=== PATIENT | female | born 1975 | race Caucasian/White ===

== ENCOUNTER 2024-10-29 16:08 | Emergency (ER) | payer BC, OTHER ==
[2024-10-29] MEDS: Take Home: Amoxicillin/Clavulanate K 875-125 MG Tab, 6 Tab Pack PO ONE (16:34)
== END 2024-10-29 16:39 | disposition home or self-care (01) ==
LOC: DL.ED 16:08
DX: S61.451A Open bite of right hand, initial encounter (principal); W55.01XA Bitten by cat, initial encounter
CPT/HCPCS: 12001; 99283; A9270

== ENCOUNTER 2024-10-31 18:08 | Inpatient (IN) | payer OTHER ==
[2024-10-31] MEDS ORDERED: Acetaminophen 325 MG Tab PO PRN (19:31)
[2024-10-31 19:52] LABS: BASOPHILS PERCENT AUTO 0.2 % (0.0-1.0); EOSINOPHILS PERCENT AUTO 1.9 % (1.0-3.0); HEMATOCRIT 37.6 % (37.0-47.0); HEMOGLOBIN 12.7 g/dL (12.0-16.0); LYMPHOCYTES PERCENT AUTO 36.1 % (20.5-50.1); MEAN CORPUSCULAR HEMOGLOBIN 32.2 pg (27.0-34.0); MEAN CORPUSCULAR HGB CONC 33.8 g/dL (33.0-35.0); MEAN CORPUSCULAR VOLUME 95.4 fL (80-100); NEUTROPHILS PERCENT AUTO 53.8 % (42.2-75.2); PLATELET COUNT,PLT 258 10^3/uL (150-450); RED BLOOD CELL COUNT 3.94 10^6/uL (4.2-5.4)
[2024-10-31 20:07] LABS: ANION GAP 12.2 mEq/L (7-13); CREATININE 0.93 mg/dL (0.55-1.02); POTASSIUM,K 4.2 mmol/L (3.5-5.1)
[2024-10-31 20:15] LABS: LACTIC ACID 1.1 mmol/L (0.4-2.0)
[2024-10-31] MEDS: Ampicillin/Sulbactam Na 3 GM in Sodium Chloride 0.9% 100 ML IV SCH (20:37)
[2024-10-31] MEDS: DAPTOmycin 500 MG Vial IVPUSH SCH (20:38)
[2024-10-31] MEDS: oxyCODONE 5 MG Tab PO PRN (20:43)
[2024-10-31] MEDS: Heparin Sodium 5,000 Units/ML Vial SUBCUT SCH (23:43)
[2024-10-31] MEDS: traMADol 50 MG Tab PO PRN (23:52)
[2024-10-31] MEDS: Acetaminophen 325 MG Tab PO SCH (23:52)
[2024-10-31] MEDS: Ibuprofen 400 MG Tab PO SCH (23:53)
[2024-11-01] MEDS: VENLAFAXINE PO ONE (08:34)
[2024-11-01] MEDS: Levothyroxine 150 MCG Tab PO SCH (10:32)
[2024-11-01] MEDS: LIOTHYRONINE PO SCH (10:33)
[2024-11-01] MEDS: Diphtheria,Pertussis(Acell),Tetanus Vaccine 0.5 ML Syringe IM ONE (13:48)
[2024-11-02] MEDS: VENLAFAXINE PO ONE (05:47)
[2024-11-02] MEDS: Doxycycline Monohydrate 100 MG Cap PO SCH (10:25)
[2024-11-02] MEDS: Amoxicillin/Clavulanate K 875-125 MG Tab PO SCH (10:25)
[2024-11-03] MEDS ORDERED: VENLAFAXINE PO SCH (05:30)
== END 2024-11-03 10:00 | disposition home or self-care (01) | DRG 603 ==
LOC: DL.MS 19:05
PROVIDERS: ADMIT Internal Medicine; ATTEND Internal Medicine
DX: L03.113 Cellulitis of right upper limb (principal); E03.9 Hypothyroidism, unspecified; F41.9 Anxiety disorder, unspecified; F32.A Depression, unspecified; Z90.710 Acquired absence of both cervix and uterus; Z79.899 Other long term (current) drug therapy
CPT/HCPCS: 36415; 73130-RT; 80048; 83605; 85025; 87070; 87075; 87205; 99222; 99232; 99239; A9270-GY; J0295; J0878; J1644